=== PATIENT | male | born 2000 | race Caucasian/White ===

== ENCOUNTER 2024-10-31 03:36 | Emergency (ER) | payer BC, SELFPAY ==
[2024-10-31] VITALS (7 sets, daily range): BP systolic 130–164; BP diastolic 82–98; PULSE 46–96; RESP 16–20; TEMP 36.5; O2SAT 97–100; BMI 27.7
--- NOTE | 2024-10-31 04:09 | ED_ITS ---
Documented by User: Trinh Foley MD 10/31/24 05:36 HPI - Abdominal Pain 2 General: Chief Complaint: Abdominal Pain Stated Complaint: ABD Pain Time Seen by Provider: 10/31/24 04:03 History of Present Illness: 24-year man who woke up this morning cou ple of hours ago with right lower abdominal nausea and vomiting. He is afebrile on presentation. Has some tenderness in the right lower quadrant. Related Data Previous Rx's ?Medication ?Instructions ?Recorded hydrocodone 5 mg-acetaminophen 325 1 tab PO Q6H PRN pa in #25 tabs 10/31/24 mg tablet promethazine 25 mg tablet 25 mg PO Q6H PRN nausea and 10/31/24 vomiting #20 tabs tamsulosin 0.4 mg capsule 0.4 mg PO DAILY #14 caps Allergies Allergy/AdvReac Type Severity Reaction Status Date / Time No Known Drug Allergies Allergy Unknown Verified 10/31/24 06:24 Review of Systems 2 Narrative: Constitutional symptoms: Negative except as documented in HPI. Skin symptoms: Negative except as documented in HPI. Eye symptoms: Negative except as documented in HPI. ENMT symptoms: Negative except as documented in HPI. Respiratory symptoms: Negative except as documented in HPI. Cardiovascular symptoms: Negative except as documented in HPI. Gastrointestinal symptoms: Negative except as documented in HPI. Genitourinary symptoms: Negative except as documented in HPI. Musculoskeletal symptoms: Negative except as documented in HPI. Neurologic symptoms: Negative except as documented in HPI. Psychiatric symptoms: Negative except as documented in HPI. Endocrine symptoms: Negative except as documented in HPI. Physical Exam 2 Narrative: EXAM NARRATIVE: General: Alert, no acute distress. Skin: Warm, dry. Head: Normocephalic, atraumatic. Neck: Supple, trachea midline. Eye: Extraocular movements are intact. Ears, nose, mouth and throat: mucosa moist. Cardiovascular: Regular, Normal peripheral perfusion. Respiratory: Lungs are clear to auscultation, respirations are non-labored, breath sounds are equal, Symmetrical chest wall expansion. Gastrointestinal: Soft, mass in the right lower quadrant, Non distended Musculoskeletal: Normal ROM, no deformity. Neurological: Alert and oriented, No focal neurological deficit observed. Psychiatric: Cooperative, appropriate mood & affect. Course 2 Vital Signs: Vital signs: Vital Signs Temperature 97.7 F 10/31/24 03:59 Pulse Rate 95 02/27/25 07:36 Respiratory Rate 16 10/31/24 06:38 Blood Pressure 134/97 10/31/24 07:36 Pulse Oximetry 98 10/31/24 07:36 Oxygen Delivery Me thod Room Air 10/31/24 07:36 MDM - Abdominal Pain Medical Decision Making Medical decision making: Differential diagnosis for this patient with right lower quadrant abdominal pain including but not limited to and based on the above HPI, review of systems and physical exam: Ureterolithiasis. Urinary tract infection. Appendicitis. colitis. small bowel obstruction. Crohn's flare. Pancreatitis. Cholelithiasis or cholecystitis. Hepatitis. Diverticulitis. Constipation. ovarian cyst. ovarian torsion Workup: Orders were placed to evaluate differential diagnosis based on the above differential, HPI and exam: Lab Review: Laboratory results were reviewed and interpreted by myself the emergency room physician. Patient does have some leukocytosis. No anemia. No renal failure. Patient care transitioned to Dr. Cohn at shift change. Awaiting CT scan and urinalysis. Lab Data 10/31/24 04:15 10/31/24 04:15 Labs/Radiology: Radiology Impressions Abdomen/Pelvis CT 10/31/24 04:40 IMPRESSION: 1. 1 mm distal right sided ureteral stone. Ysrt-no-lcrbuuvr hydroureteronephrosis. 2. No evidence of appendicitis. Laboratory Results WBC 14.79 10^3/uL (3.29-11.43) H 10/31/24 04:15 RBC 4.94 10^6/uL (3.85-5.65) 10/31/24 04:15 Hgb 15.70 g/dL (11.27-16.99) 10/31/24 04:15 Hct 44.3 % (37-53) 10/31/24 04:15 MCV 89.7 fl (82-101) 10/31/24 04:15 MCH 31.8 pg (27-33) 10/31/24 04:15 MCHC 35.4 g/dL (30-55) 10/31/24 04:15 RDW 11.7 % (12.1-15.1) L 10/31/24 04:15 Plt Count 368 10^3/cmm (157-399) 10/31/24 04:15 MPV 8.9 fL (7.4-10.4) 10/31/24 04:15 Neut % (Auto) 80.5 % 10/31/24 04:15 Lymph % (Auto) 13.1 % 10/31/24 04:15 [place] % (Auto) 5.5 % 10/31/24 04:15 Eos % (Auto) 0.3 % 10/31/24 04:15 Baso % (Auto) 0.3 % 10/31/24 04:15 Neut # (Auto) 11.90 10^3/uL (1.8-7.7) H 10/31/24 04:15 Lymph # (Auto) 1.9 10^3/uL (0.8-4.8) 10/31/24 04:15 [place] # (Auto) 0.8 10^3/uL (0.2-0.9) 10/31/24 04:15 Eos # (Auto) 0.0 10^3/uL (0.0-0.8) 10/31/24 04:15 Baso # (Auto) 0.0 10^3/uL (0.0-0.1) 10/31/24 04:15 Nucleated RBC % (auto) 0 % 10/31/24 04:15 Nucleated RBCs # 0.0 /100WBC 10/31/24 04:15 Sodium 136 mmol/L (136-145) 10/31/24 04:15 Potassium 3.7 mmol/L (3.5-5.1) 10/31/24 04:15 Chloride 99 mmol/L (98-107) 10/31/24 04:15 Carbon Dioxide 21 mmol/L (22-29) L 10/31/24 04:15 Anion Gap 19.7 (5-19) H 10/31/24 04:15 BUN 16 mg/dL (6-20) 10/31/24 04:15 Creatinine 1.1 mg/dL (0.7-1.2) 10/31/24 04:15 GFR Calculation 83.0 mL/min (90-130) L 10/31/24 04:15 Glucose 115 mg/dL (65-115) 10/31/24 04:15 Calculated Osmolality 284 mOsm/kg (285-295) L 10/31/24 04:15 Calcium 9.4 mg/dL (8.5-10.5) 10/31/24 04:15 Total Bilirubin 0.4 mg/dL (0.15-1.2) 10/31/24 04:15 AST 13 U/L (0-40) 10/31/24 04:15 ALT 17 U/L (0-41) 10/31/24 04:15 Alkaline Phosphatase 83 U/L (40-130) 10/31/24 04:15 C-Reactive Protein 3.0 mg/L (0.0-4.9) 10/31/24 04:15 Total Protein 8.0 g/dL (6.6-8.7) 10/31/24 04:15 Albumin 4.8 g/dL (3.5-5.2) 10/31/24 04:15 Globulin 3.2 g/dL (1.3-4.6) 10/31/24 04:15 Urine Color Yellow (Yellow) 10/31/24 07:10 Urine Appearance Clear (CLEAR) 10/31/24 07:10 Urine pH 5.0 (5-7) 10/31/24 07:10 Ur Specific [place] 1.088 (1.005-1.030) H 10/31/24 07:10 Urine Protein Trace (Negative) A 10/31/24 07:10 Urine Glucose (UA) Negative (Normal) 10/31/24 07:10 Urine Ketones 2+ (Negative) H 10/31/24 07:10 Urine Blood 1+ (Negative) A 10/31/24 07:10 Urine Nitrate Negative (Negative) 10/31/24 07:10 Urine Bilirubin Negative (Negative) 10/31/24 07:10 Urine Urobilinogen 1.0 mg/dL (Negative) 10/31/24 07:10 Ur Leukocyte Esterase Negative (Negative) 10/31/24 07:10 Urine RBC 5-10 /hpf (0-2) H 10/31/24 07:10 Urine WBC 0-4 /hpf (0-5) H 10/31/24 07:10 Ur Squamous Epith Cells 0-4 /hpf (0-5) H 10/31/24 07:10 Amorphous Sediment Not Reportable 10/31/24 07:10 Urine Bacteria Trace /hpf (NONE) 10/31/24 07:10 Urine Mucus 1+ /hpf 10/31/24 07:10 Discharge Plan Discharge Patient Disposition: Home Clinical Impression: Ureterolithiasis Condition: Stable Prescriptions: New hydrocodone-acetaminophen 5-325 mg tablet 1 tab PO Q6H PRN (Reason: pain) Qty: 25 0RF promethazine 25 mg tablet 25 mg PO Q6H PRN (Reason: nausea and vomiting) Qty: 20 0RF tamsulosin 0.4 mg capsule 0.4 mg PO DAILY Qty: 14 0RF Discharge Orders: Discharge ED (Routine); Ordered 10/31/24 Ordered By: Zaheer Cohn Discharge Diet: Usual diet Discharge Activity: Resume usual activity Patient Instructions: Kidney Stones (ED), How to Strain Your Urine (ED), Opioid Safety, Pain Management Activity Restrictions/Additional Instructions: Thank you for choosing [facility] for your healthcare needs today. It is very important that you follow up as instructed or that you return to the Emergency Department should you have concerns or if your condition changes or worsens in any way. You were seen in the emergency room with complaint of abdominal pain. Urine did not show any sign of infection but did have red blood cells CT showed a 1 mm right sided kidney stone. This likely will pass on its own you are given pain and nausea medicines as well as tamsulosin which will help the stone pass. You should strain your urine to collect a stone. manager post will make arrangements for you to follow-up with urology. Print Language: Malagasy Sign Out Sign Out Data: Patient Sign Out occurred on 10/31/24 at 06:25. Patient's care was discussed, and care was transferred from Trinh Foley MD to Zaheer Cohn DO. Coding Level of Care Code ED [employer] for [employer] Documented by User: Zaheer Cohn DO 10/31/24 08:07 HPI - Abdominal Pain 2 General: Chief Complaint: Abdominal Pain Stated Complaint: ABD Pain Time Seen by Provider: 10/31/24 04:03 Related Data Previous Rx's ?Medication ?Instructions ?Recorded hydrocodone 5 mg-acetaminophen 325 1 tab PO Q6H PRN pa in #25 tabs 10/31/24 mg tablet promethazine 25 mg tablet 25 mg PO Q6H PRN nausea and 10/31/24 vomiting #20 tabs tamsulosin 0.4 mg capsule 0.4 mg PO DAILY #14 caps Allergies Allergy/AdvReac Type Severity Reaction Status Date / Time No Known Drug Allergies Allergy Unknown Verified 10/31/24 06:24 Course 2 Vital Signs: Vital signs: Vital Signs Temperature 97.7 F 10/31/24 03:59 Pulse Rate 95 10/31/24 07:36 Respiratory Rate 16 10/31/24 06:38 Blood Pressure 134/97 10/31/24 07:36 Pulse Oximetry 98 10/31/24 07:36 Oxygen Delivery Me thod Room Air 10/31/24 07:36 MDM - Abdominal Pain Medical Decision Making Medical decision making: Differential diagnosis for this patient with right lower quadrant abdominal pain including but not limited to and based on the above HPI, review of systems and physical exam: Ureterolithiasis. Urinary tract infection. Appendicitis. colitis. small bowel obstruction. Crohn's flare. Pancreatitis. Cholelithiasis or cholecystitis. Hepatitis. Diverticulitis. Constipation. ovarian cyst. ovarian torsion Workup: Orders were placed to evaluate differential diagnosis based on the above differential, HPI and exam: Lab Review: Laboratory results were reviewed and interpreted by myself the emergency room physician. Patient does have some leukocytosis. No anemia. No renal failure. Patient care transitioned to Dr. Cohn at shift change. Awaiting CT scan and urinalysis. Care assumed at change of show CT shows 1 mm right ureterolithiasis urine shows hematuria no signs of infection. Patient comfortable at this time discharge home with hydrocodone tamsulosin promethazine strain urine and refer to urology. Return if pain not controlled Medical Records I reviewed the patient's medical records. Lab Data I reviewed the patient's lab results. 10/31/24 04:15 10/31/24 04:15 Labs/Radiology: Radiology Impressions Abdomen/Pelvis CT 10/31/24 04:40 IMPRESSION: 1. 1 mm distal right sided ureteral stone. Imbm-sp-kmezcsto hydroureteronephrosis. 2. No evidence of appendicitis. Laboratory Results WBC 14.79 10^3/uL (3.29-11.43) H 10/31/24 04:15 RBC 4.94 10^6/uL (3.85-5.65) 10/31/24 04:15 Hgb 15.70 g/dL (11.27-16.99) 10/31/24 04:15 Hct 44.3 % (37-53) 10/31/24 04:15 MCV 89.7 fl (82-101) 10/31/24 04:15 MCH 31.8 pg (27-33) 10/31/24 04:15 MCHC 35.4 g/dL (30-55) 10/31/24 04:15 RDW 11.7 % (12.1-15.1) L 10/31/24 04:15 Plt Count 368 10^3/cmm (157-399) 10/31/24 04:15 MPV 8.9 fL (7.4-10.4) 10/31/24 04:15 Neut % (Auto) 80.5 % 10/31/24 04:15 Lymph % (Auto) 13.1 % 10/31/24 04:15 [place] % (Auto) 5.5 % 10/31/24 04:15 Eos % (Auto) 0.3 % 10/31/24 04:15 Baso % (Auto) 0.3 % 10/31/24 04:15 Neut # (Auto) 11.90 10^3/uL (1.8-7.7) H 10/31/24 04:15 Lymph # (Auto) 1.9 10^3/uL (0.8-4.8) 10/31/24 04:15 [place] # (Auto) 0.8 10^3/uL (0.2-0.9) 10/31/24 04:15 Eos # (Auto) 0.0 10^3/uL (0.0-0.8) 10/31/24 04:15 Baso # (Auto) 0.0 10^3/uL (0.0-0.1) 10/31/24 04:15 Nucleated RBC % (auto) 0 % 10/31/24 04:15 Nucleated RBCs # 0.0 /100WBC 10/31/24 04:15 Sodium 136 mmol/L (136-145) 10/31/24 04:15 Potassium 3.7 mmol/L (3.5-5.1) 10/31/24 04:15 Chloride 99 mmol/L (98-107) 10/31/24 04:15 Carbon Dioxide 21 mmol/L (22-29) L 10/31/24 04:15 Anion Gap 19.7 (5-19) H 10/31/24 04:15 BUN 16 mg/dL (6-20) 10/31/24 04:15 Creatinine 1.1 mg/dL (0.7-1.2) 10/31/24 04:15 GFR Calculation 83.0 mL/min (90-130) L 10/31/24 04:15 Glucose 115 mg/dL (65-115) 10/31/24 04:15 Calculated Osmolality 284 mOsm/kg (285-295) L 10/31/24 04:15 Calcium 9.4 mg/dL (8.5-10.5) 10/31/24 04:15 Total Bilirubin 0.4 mg/dL (0.15-1.2) 10/31/24 04:15 AST 13 U/L (0-40) 10/31/24 04:15 ALT 17 U/L (0-41) 10/31/24 04:15 Alkaline Phosphatase 83 U/L (40-130) 10/31/24 04:15 C-Reactive Protein 3.0 mg/L (0.0-4.9) 10/31/24 04:15 Total Protein 8.0 g/dL (6.6-8.7) 10/31/24 04:15 Albumin 4.8 g/dL (3.5-5.2) 10/31/24 04:15 Globulin 3.2 g/dL (1.3-4.6) 10/31/24 04:15 Urine Color Yellow (Yellow) 10/31/24 07:10 Urine Appearance Clear (CLEAR) 10/31/24 07:10 Urine pH 5.0 (5-7) 10/31/24 07:10 Ur Specific [place] 1.088 (1.005-1.030) H 10/31/24 07:10 Urine Protein Trace (Negative) A 10/31/24 07:10 Urine Glucose (UA) Negative (Normal) 10/31/24 07:10 Urine Ketones 2+ (Negative) H 10/31/24 07:10 Urine Blood 1+ (Negative) A 10/31/24 07:10 Urine Nitrate Negative (Negative) 10/31/24 07:10 Urine Bilirubin Negative (Negative) 10/31/24 07:10 Urine Urobilinogen 1.0 mg/dL (Negative) 10/31/24 07:10 Ur Leukocyte Esterase Negative (Negative) 10/31/24 07:10 Urine RBC 5-10 /hpf (0-2) H 10/31/24 07:10 Urine WBC 0-4 /hpf (0-5) H 10/31/24 07:10 Ur Squamous Epith Cells 0-4 /hpf (0-5) H 10/31/24 07:10 Amorphous Sediment Not Reportable 10/31/24 07:10 Urine Bacteria Trace /hpf (NONE) 10/31/24 07:10 Urine Mucus 1+ /hpf 10/31/24 07:10 All radiology interpretation(s) finalized by discharge Discharge Plan Discharge Patient Disposition: Home Clinical Impression: Ureterolithiasis Condition: Stable Prescriptions: New hydrocodone-acetaminophen 5-325 mg tablet 1 tab PO Q6H PRN (Reason: pain) Qty: 25 0RF promethazine 25 mg tablet 25 mg PO Q6H PRN (Reason: nausea and vomiting) Qty: 20 0RF tamsulosin 0.4 mg capsule 0.4 mg PO DAILY Qty: 14 0RF Discharge Orders: Discharge ED (Routine); Ordered 10/31/24 Ordered By: Zaheer Cohn Discharge Diet: Usual diet Discharge Activity: Resume usual activity Patient Instructions: Kidney Stones (ED), How to Strain Your Urine (ED), Opioid Safety, Pain Management Activity Restrictions/Additional Instructions: Thank you for choosing [facility] for your healthcare needs today. It is very important that you follow up as instructed or that you return to the Emergency Department should you have concerns or if your condition changes or worsens in any way. You were seen in the emergency room with complaint of abdominal pain. Urine did not show any sign of infection but did have red blood cells CT showed a 1 mm right sided kidney stone. This likely will pass on its own you are given pain and nausea medicines as well as tamsulosin which will help the stone pass. You should strain your urine to collect a stone. manager post will make arrangements for you to follow-up with urology. Print Language: Malagasy Sign Out Sign Out Data: Patient Sign Out occurred on 10/31/24 at 06:25. Patient's care was discussed, and care was transferred from Trinh Foley MD to Zaheer Cohn DO. Coding Level of Care Code ED [employer] for Sharmila Wood
[2024-10-31] MEDS: ketorolac 30 mg/mL INJ IVP (04:21)
[2024-10-31] MEDS: ondansetron 2 mg/ML SDV 2 mL 4 MG IVP (04:21)
[2024-10-31 04:25] LABS: Basophils % 0.3 %; Eosinophils % 0.3 %; Hematocrit 44.3 % (37-53); Lymphocytes # 1.9 10^3/uL (0.8-4.8); Lymphocytes % 13.1 %; Mean Corpuscular HGB Conc 35.4 g/dL (30-55); Mean Corpuscular Hemoglobin 31.8 pg (27-33); Mean Corpuscular Volume 89.7 fl (82-101); Mean Platelet Volume 8.9 fL (7.4-10.4); Monocytes # 0.8 10^3/uL (0.2-0.9); Monocytes % 5.5 %; Neutrophils % 80.5 %; Nucleated Red Blood Cells % 0 %; Platelet Count 368 10^3/cmm (157-399); Red Blood Count 4.94 10^6/uL (3.85-5.65); Red Cell Distribution Width 11.7 % (12.1-15.1); White Blood Count 14.79 10^3/uL (3.29-11.43)
[2024-10-31 04:40] LABS: Alanine Aminotransferase 17 U/L (0-41); Albumin Level 4.8 g/dL (3.5-5.2); Alkaline Phosphatase 83 U/L (40-130); Anion Gap 19.7 (5-19); Aspartate Amino Transferase 13 U/L (0-40); Blood Urea Nitrogen 16 mg/dL (6-20); Calcium 9.4 mg/dL (8.5-10.5); Carbon Dioxide 21 mmol/L (22-29); Chloride 99 mmol/L (98-107); Globulin 3.2 g/dL (1.3-4.6); Glucose 115 mg/dL (65-115); Osmolality Calculated 284 mOsm/kg (285-295); Potassium 3.7 mmol/L (3.5-5.1); Sodium 136 mmol/L (136-145); Total Bilirubin 0.4 mg/dL (0.15-1.2)
--- NOTE | 2024-10-31 04:40 | CTR_ITS ---
PROCEDURE INFORMATION: Exam: CT Abdomen And Pelvis With Contrast Exam date and time: 10/31/2024 5:51 AM Age: 24 years old Clinical indication: Abdominal pain; Localized; Right lower quadrant (rlq); Additional info: Rlq abdominal pain TECHNIQUE: Imaging protocol: Computed tomography of the abdomen and pelvis with contrast. Radiation optimization: All CT scans at this facility use at least one of these dose optimization techniques: automated exposure control; mA and/or kV adjustment per patient size (includes targeted exams where dose is matched to clinical indication); or iterative reconstruction. Contrast material: OMNI 350; Contrast volume: 100 ml; Contrast route: INTRAVENOUS (IV); COMPARISON: No relevant prior studies available. RADIATION DOSE METRICS: Total DLP (mGy-cm): 793.43 FINDINGS: Liver: Normal. No mass. Gallbladder and biliary ducts: Normal. No calcified stones. No ductal dilation. Pancreas: Normal. No ductal dilation. Spleen: Normal. No splenomegaly. Adrenal glands: Normal. No mass. Kidneys and ureters: 1 mm distal right sided ureteral stone. Gjyn-xh-mtxfwanr hydroureteronephrosis. Stomach and bowel: Unremarkable. No obstruction. No mucosal thickening. Appendix: Normal appendix. Intraperitoneal space: Unremarkable. No free air. No significant fluid collection. Vasculature: Unremarkable. No abdominal aortic aneurysm. Lymph nodes: Unremarkable. No enlarged lymph nodes. Urinary bladder: Unremarkable as visualized. Reproductive: Unremarkable as visualized. Bones/joints: Unremarkable. No acute fracture. Soft tissues: Unremarkable. CT/CT abdomen pelvis w con* [id number] IMPRESSION: 1. 1 mm distal right sided ureteral stone. Eumo-yx-[id number] hydroureteronephrosis. 2. No evidence of appendicitis.
[2024-10-31] MEDS: morphine 4 mg/mL SDV 1 mL IVP (06:36)
[2024-10-31 07:28] LABS: Bilirubin Urine Negative (Negative); Blood Urine 1+ (Negative); Glucose Urine UA Negative (Normal); Ketones Urine 2+ (Negative); Leukocyte Esterase Urine Negative (Negative); Nitrate Urine Negative (Negative); Protein Urine Trace (Negative); Urine Appearance Clear (CLEAR); Urine Color Yellow (Yellow)
[2024-10-31 07:44] LABS: Specific Gravity, Urine 1.088 (1.005-1.030); UA Manual Slide Review YES
[2024-10-31 07:45] LABS: Squamous Epithelial Cell Urine 0-4 /hpf (0-5); WBC Urine 0-4 /hpf (0-5)
[2024-10-31 07:46] LABS: Add Urine Culture? No; Bacteria Urine TRACE /hpf; Mucus Urine 1+ /hpf
--- NOTE | 2024-10-31 08:06 | PC.PHAR ---
Pt would like non narcotics sent to [facility] and any narcotics need to go to [facility]
--- NOTE | 2024-10-31 08:11 | DCPLANNER ---
faxed referral packet to [facility] urology
== END 2024-10-31 08:33 | disposition home or self-care (01) ==
PROVIDERS: Emergency Medicine; Emergency Provider Family Medicine
DX: N20.1 Calculus of ureter (principal)
CPT/HCPCS: 74177; 80053; 81001; 85025; 86140; 96374; 96375; 99285; J1885; J2270; J2405